=== PATIENT | female | born 1975 | race Caucasian/White ===

== ENCOUNTER 2023-02-15 14:12 | Outpatient (RCR) | payer OTHER, SELFPAY | END 2023-05-02 16:53 | disposition home or self-care (01) | LOC: PT 14:12 | PROVIDERS: PCP Family Medicine; Visit Provider Student in an Organized Health Care Education/Training Program | DX: M92.62 Juvenile osteochondrosis of tarsus, left ankle (principal) | CPT/HCPCS: 20561; 97010; 97014; 97110; 97112; 97140; 97162; 97530 ==

== ENCOUNTER 2023-04-04 14:46 | Outpatient (OUT) | payer OTHER, SELFPAY ==
--- NOTE | 2023-04-04 14:54 | XR_ITS ---
The [address] [address] Patient Name: MARGAUX SHARP MRN: [id number] date: 1975 Sex: F Assigned Patient Location: [facility] Current Patient Location: Accession/Order Number: [id number] Exam Date: 04/04/2023 14:54 Report Date: 04/05/2023 06:37 At the request of: MAGDY SANTILLAN Procedure: XR foot RT min 3V PROCEDURE: XR ankle RT min 3V, XR foot RT min 3V HISTORY: RIGHT ANKLE PAIN , chronic COMPARISON: XR foot bilateral 09/29/2022 FINDINGS: BONES:Unhnh-yrwiwaqo-fhutu degenerative enthesophytes at the Achilles tendon and plantar aponeurosis insertions into calcaneus. Bone hypertrophy the head of the first metatarsal compatible with bunion formation. Mild degenerative changes the first metatarsophalangeal joint. Unremarkable ankle mortise. SOFT TISSUES:No visible soft tissue swelling. EFFUSION:None visible. OTHER: Negative. XR/XR foot RT min 3V IMPRESSION: 1. No acute bone abnormality. 2. Bunion formation. 3. Mild-moderate enthesopathic spurring of the calcaneus. Electronically authenticated by: FERNIE SERRANO Date: 04/05/2023 06:37
--- NOTE | 2023-04-04 14:55 | XR_ITS ---
The [address] [address] Patient Name: MARGAUX SHARP MRN: [id number] date: 1975 Sex: F Assigned Patient Location: [facility] Current Patient Location: Accession/Order Number: [id number] Exam Date: 04/04/2023 14:54 Report Date: 04/05/2023 06:37 At the request of: MAGDY SANTILLAN Procedure: XR ankle RT min 3V PROCEDURE: XR ankle RT min 3V, XR foot RT min 3V HISTORY: RIGHT ANKLE PAIN , chronic COMPARISON: XR foot bilateral 09/29/2022 FINDINGS: BONES:Hjbdc-vmyjebfv-irnhc degenerative enthesophytes at the Achilles tendon and plantar aponeurosis insertions into calcaneus. Bone hypertrophy the head of the first metatarsal compatible with bunion formation. Mild degenerative changes the first metatarsophalangeal joint. Unremarkable ankle mortise. SOFT TISSUES:No visible soft tissue swelling. EFFUSION:None visible. OTHER: Negative. XR/XR ankle RT min 3V IMPRESSION: 1. No acute bone abnormality. 2. Bunion formation. 3. Mild-moderate enthesopathic spurring of the calcaneus. Electronically authenticated by: FERNIE SERRANO Date: 04/05/2023 06:37
== END 2023-04-04 14:47 | disposition home or self-care (01) ==
LOC: RAD 14:46
PROVIDERS: PCP Family Medicine; Visit Provider Podiatrist Foot & Ankle Surgery
DX: M25.571 Pain in right ankle and joints of right foot (principal); M77.31 Calcaneal spur, right foot
CPT/HCPCS: 73610; 73630

== ENCOUNTER 2023-04-30 09:54 | Outpatient (OUT) | payer OTHER, SELFPAY ==
--- NOTE | 2023-04-30 10:40 | P.GSHP_ITS ---
History of Present Illness History of Present Illness Chief complaint: strain of right Achilles tendon Narrative: Patient presents for preadmission testing. The patient reports right heel pain. The patient states his pain has been ongoing for years, worse with 1st steps of the morning, better with meloxicam. The patient states that she had surgery for her left foot in December 2022 and she is doing very well. She denies numbness, tingling, weakness, or any other complaints. Review of Systems ROS Narrative REVIEW OF SYSTEMS: Negative except as stated in HPI, ten or more systems reviewed. Constitutional: No fever , chills, weakness ENT: No sore throat or epistaxis Cardiovascular: No edema, chest pain, palpitations, or activity intolerance Respiratory: No shortness of breath, cough, or wheezing Gastrointestinal: No abdominal pain, constipation, diarrhea, or vomiting Genitourinary: No dysuria or hematuria Neurological: No numbness, tingling, weakness, or headache Psychiatric: No mood changes PFSH PFSH Medical History (Updated 04/30/23 @ 10:47 by Lanette Ramsey NP) Surgical History (Updated 04/30/23 @ 10:16 by Lanette Ramsey NP) Family History (Updated 04/30/23 @ 10:16 by Lanette Ramsey NP) Other Family history of breast cancer Family history of hypertension Family history of prostate cancer Social History (Updated 04/30/23 @ 10:13 by Lanette Ramsey NP) Within the past year, how often did you have a drink containing alcohol: 2-4 times a month Smoking status: Never smoker Non-prescribed substance use: denies use Previous occupational history: [employer] Highest level of school completed/degree received: high school graduate Meds Home Medications and Allergies Home Medications Medication Instructions Recorded Confirmed Type meloxicam 15 mg tablet 15 mg PO QDAY 04/30/23 04/30/23 History Allergies Allergy/AdvReac Type Severity Reaction Status Date / Time No Known Drug Allergies Allergy Verified 04/30/23 10:11 Exam Narrative Exam Narrative: Constitutional: Awake, alert, Very pleasant, comfortable, well-appearing, nontoxic, interactive, vital signs as charted Head: Normocephalic, atraumatic Neck: Supple, normal appearance, normal range of motion, no meningeal signs, no lymphadenopathy Respiratory: No respiratory distress, breath sounds clear Cardiovascular: Regular rate and rhythm, strong and regular heart tones Abdomen: Nontender, normal bowel sounds, soft, no CVA tenderness Musculoskeletal: Tenderness overlying the plantar aspect of the right calcaneus, heel pain with ankle flexion, good capillary refill, sensation intact Skin: No rashes or induration, no lesions, only visible skin inspected Neuro: No neurological deficits, normal sensation Psychiatric: Oriented ?3, normal affect Assessment and Plan Assessment and Plan (1) Achilles tendonitis: (2) Strain of Achilles tendon: (3) Gastrocnemius equinus: (4) Heel pain: Plan Right detachment?reattachment of Achilles tendon with repair/debridement as needed and excision of calcaneal spur, possible tendon transfer scheduled with Dr. Valladares 05/14/2023.
== END 2023-04-30 09:55 | disposition home or self-care (01) ==
LOC: PST 09:54
PROVIDERS: PCP Family Medicine; Visit Provider Podiatrist Foot & Ankle Surgery
DX: Z01.818 Encounter for other preprocedural examination (principal); S86.011S Strain of right Achilles tendon, sequela; M76.61 Achilles tendinitis, right leg
CPT/HCPCS: G0463

== ENCOUNTER 2023-05-14 07:59 | Day surgery (SDC) | payer OTHER, SELFPAY ==
[2023-04-30 10:32] VITALS: BP 122/85; PULSE 75; RESP 18; TEMP 36.4; O2SAT 98; BMI 47.4
[2023-05-14] VITALS (10 sets, daily range): BP systolic 128–164; BP diastolic 76–90; PULSE 65–92; RESP 13–21; TEMP 36.1–36.2; O2SAT 76–100; BMI 46.3
[2023-05-14 08:20] LABS: Glucometer 95 mg/dL (74-106)
[2023-05-14] MEDS: LACTATED RINGER'S SOLUTION 1,000 ML 50 ML IV (08:22)
[2023-05-14] MEDS: CEFAZOLIN SODIUM/DEXTROSE,ISO 2 GM/50 ML PIGGYBACK IV (10:09)
--- NOTE | 2023-05-14 10:15 | PC.NURSE ---
time out performed as documented. pt connected to vitals machine and 2L O2 via nasal cannula applied per policy. pt then positioned per anethesia and popliteal block began at 0956. Block was completed at 1004, pt tolerated well with no complaints. pts vitals monioted throughout procedure and will be monitored until pt is taken back to the OR. pt remains on 2L O2,pt positioned to their comfort. siderails are up,bed in lowest position with call light within reach.
--- NOTE | 2023-05-14 12:15 | XR_ITS ---
The [address] [address] Patient Name: MARGAUX SHARP MRN: [id number] date: 1975 Sex: F Assigned Patient Location: [facility] Current Patient Location: Accession/Order Number: [id number] Exam Date: 05/14/2023 12:55 Report Date: 05/15/2023 09:22 At the request of: SEAN BASSETT Procedure: XR ankle RT min 3V EXAM: XR ankle RT min 3V HISTORY: . postop xr pacu . COMPARISON: None. TECHNIQUE: 3 views. FINDINGS: There is a splint overlying the posterior and lateral aspect of the ankle. Medial lateral malleolar appear intact. Ankle mortise appears intact. There is a small spur off the posterior aspect of the calcaneus. XR/XR ankle RT min 3V IMPRESSION: 1. Splint in place 2. Post Achilles reattachment. 3. Small spur off the posterior inferior aspect of the calcaneus. Electronically authenticated by: SARA LYONS Date: 05/15/2023 09:22
--- NOTE | 2023-05-14 12:25 | PM.ORONB ---
Brief Operative Note Date of procedure: 05/14/23 Pre-op diagnosis: right chronic Achilles tendon tear, calcaneal spur, Achilles tendinitis Post-op diagnosis: same as pre-op Procedure: PROCEDURES PERFORMED: right flexor hallucis longus tendon transfer with Achilles tendon repair an excision of calcaneal spur; application of short leg splint INTRAOPERATIVE FINDINGS: significant chronic tears of the Achilles tendon with intratendinous degeneration. Large calcaneal enthesophyte with associated bursitis. Bone quality was within normal limits. PROCEDURE IN DETAIL: Patient was identified in pre op and consent was reviewed. Correct side and site were identified and marked. Pre-op antibiotics were started. Patient was brought to OR suite and general anesthesia was administered. Tourniquet applied. then the patient was flipped onto the OR table in a well-padded prone position. Operative extremity was prepped and draped in usual sterile fashion. Formal time-out was performed and the foot/ankle were exsanguinated and tourniquet inflated. A midline longitudinal incision over the Achilles tendon was performed and a combination of sharp and blunt dissection with all bleeders being coagulated allowed access to the Achilles tendon. The non-insertional and insertional areas of the Achilles tendon were completely exposed. There was significant thickening and nonviable tissue noted in Achilles tendon. The Achilles tendon was then detached from its insertion and a retrocalcaneal spur was noted with retrocalcaneal bursitis with surrounding inflammatory tissue was noted and excised. Nonviable tendon was excised then all chronic tears and scar tissue removed. 50% Of the Achilles required excision. Attention was then drawn to the retrocalcaneal spur and an osteotome was used to remove all excess bone and inflammatory tissue. A rongeur and rasp were then used to contour the retrocalcaneal to an anatomic appearance. Outer cortical bone was invaded and healthy bleeding was noted which will allow good tendon to bone healing. The area was flushed with copious amounts of sterile saline and a wet lap was placed over the Achilles tendon. The deep crural fascia was incised exposing the flexor hallucis longus muscle and tendon. Then while my human resources executive assistant placed the foot and great toe in maximum plantar flexion and the tendon was isolated and then brought as far proximal as possible. I then transected the flexor hallucis longus tendon as distally as possible. I then used suture to whipstitch the flexor hallucis longus tendon and needles were cut from the sutures. A wet lap was placed over the tendon with the Achilles. Attention was then redrawn back to the retro-calcaneus and a placed in the superior aspect of the calcaneus and driven through the plantar surface. A stab incision on the plantar foot allowed passage of the guide pin. The FHL tendon was sized to determine appropriate size of the anchor. A cannulated drill was used over the guide pin and drilled to the appropriate depth. The sutures were passed through the guide pin and the pin pulled through the plantar skin. The tendon passed through the drill hole and tension was held on the sutures while holding the foot in slight plantarflexion. A 6 mm tenodesis anchor was placed accordingly to secure the FHL tendon to the calcaneus. Stability was tested and was stable Reattachment: Two drill holes were placed into the posterior calcaneus from posterior to anterior and were placed approximately 2 cm apart in the superior aspect of the posterior calcaneus. A 3.[address] in each of the drill holes. Four of the sutures (two from each anchor) were placed through the Achilles at the proximal insertion. Then two additional drill holes were placed on the inferior aspect of the posterior calcaneus. Then 1 suture from each of the anchors was placed through a 4.5 mm knotless screw. The sutures were tensioned and the anchor placed in the medial drill holes while holding the foot plantarflexed. The sutures were then tied and cut. This step was repeated for the inferior-lateral drill hole. the sutures were then tied and cut. The sutures were tied/cut and the stability of the insertion was tested and were stable. The foot was in 10 degrees of equinus. The surgical site was flushed thoroughly. Incision was then closed in layers. Tourniquet was deflated and a prompt hyperemic response is noted. A dry sterile dressing consisting of Xeroform on the incisions followed by 4 x 4 gauze, ABDs, and Kerlix were applied. Multiple layers of cast padding were then applied to ensure all bony prominences were well-padded. A plaster posterior splint was then applied which was held in place by Inocente wraps. Capillary refill time to all digits was evaluated and had appropriate response. POSTOPERATIVE PLAN: Discharge home under family's care Post op instructions provided verbally and written prescription(s) were placed in chart NWB operative foot/ankle x3 wks or until incision has healed Follow-up in 1 week Implants: Medline anchors Anesthesia: regional and General-ET Surgeon: Pancho Valladares Pull Over Machine Operator: Florencio Saxena Estimated blood loss (mL): 10 Pathology: other (Achilles tendon and calcaneal spur) Condition: stable Disposition: PACU Preoperative Details Reason for procedure: patient is a 47-year-old female presented long-standing progressive pain and dysfunction with bilateral Achilles tendons with the right being worse than the left. On examination she had thickening of the Achilles tendon on the right with large palpable enthesophyte. MRI demonstrated significant intratendinous degeneration with chronic tearing. I discussed the risks and benefits of surgical versus continued nonsurgical treatment. Given that she had failed nonsurgical treatment she wished to proceed with surgical repair. All questions were answered to her satisfaction and consent was obtained
== END 2023-05-14 13:38 | disposition home or self-care (01) ==
PROVIDERS: PCP Family Medicine; Visit Provider Podiatrist Foot & Ankle Surgery
PROC: (CPT 27650; principal; 2023-05-14 09:10)
DX: M76.61 Achilles tendinitis, right leg (principal); S86.011S Strain of right Achilles tendon, sequela; Z90.710 Acquired absence of both cervix and uterus; M77.31 Calcaneal spur, right foot
CPT/HCPCS: 27650; 27691; 28118; 36415; 64445; 73610; 76942; 82948; 88304; 88305; 88311; C1713; J2704

== ENCOUNTER 2023-07-13 15:05 | Outpatient (RCR) | payer OTHER, SELFPAY | END 2023-08-22 11:35 | disposition home or self-care (01) | LOC: PT 15:05 | PROVIDERS: PCP Family Medicine; Visit Provider Podiatrist Foot & Ankle Surgery | DX: M76.61 Achilles tendinitis, right leg (principal) | CPT/HCPCS: 97110; 97112; 97140; 97162 ==

== ENCOUNTER 2024-08-09 08:46 | Outpatient (OUT) | payer OTHER, SELFPAY ==
[2024-08-09 09:09] LABS: Basophils Percent Auto 0.7 % (0.2-2.0); Hematocrit 43.6 % (36.0-48.0); Immature Granulocytes Abs Auto 0.02 10^3/uL (0.00-0.03); Immature Granulocytes Pct Auto 0.4 % (0.0-0.5); Lymphocytes Absolute Auto 1.7 10^3/uL (1.2-3.8); Lymphocytes Percent Auto 29.6 % (20.5-60.0); Mean Corpuscular HGB Conc 32.1 g/dL (29.9-35.2); Mean Corpuscular Hemoglobin 28.3 pg (26.7-34.0); Mean Corpuscular Volume 88.1 fL (81.0-99.0); Mean Platelet Volume 9.8 fL (9.5-13.5); Monocytes Absolute Auto 0.4 10^3/uL (0.3-0.8); Monocytes Percent Auto 6.4 % (1.7-12.0); Neutrophils Absolute Auto 3.6 10^3/uL (1.4-6.5); Neutrophils Percent Auto 62.9 % (43.0-75.0); Platelet Count 253 10^3/uL (150-450); Red Blood Count 4.95 10^6/uL (4.20-5.40); Red Cell Distribution Width 13.3 % (11.0-15.0); White Blood Count 5.6 10^3/uL (4.0-11.0)
[2024-08-09 09:40] LABS: Alanine Aminotransferase 22 U/L (14-59); Albumin Globulin Ratio 0.9; Albumin Level 3.5 g/dL (3.4-5.0); Alkaline Phosphatase 99 U/L (46-116); Anion Gap 12.5; Aspartate Amino Transferase 22 U/L (15-37); BUN Creatinine Ratio 15.3; Bilirubin Total 0.4 mg/dL (0.2-1.0); Calcium 8.9 mg/dL (8.5-10.1); Carbon Dioxide 27.6 mmol/L (21.0-32.0); Chloride 105 mmol/L (98-107); Chol HDL Ratio 3.8; Cholesterol 190 mg/dL (<=200); Estimated GFR (African America >60 (>=60 mL/min/1.73m^2); Estimated GFR (Non-African Ame >60 (>=60 mL/min/1.73m^2); Free T3 2.65 pg/mL (2.18-3.98); Globulin 3.8 g/dL; Glucose 95 mg/dL (74-106); HDL Cholesterol 50 mg/dL (40-60); LDL Cholesterol Calculated 111.6 mg/dL; Potassium 4.1 mmol/L (3.5-5.1); Sodium 141 mmol/L (136-145); Thyroid Stimulating Hormone 2.766 uIU/mL (0.358-3.740); Total Protein 7.3 g/dL (6.4-8.2); Triglycerides 142 mg/dL (<=150); VLDL CHOLESTEROL 28.4 mg/dL
[2024-08-09 10:06] LABS: Estimated Average Glucose 108 mg/dL; Glycohemoglobin A1C 5.4 % (4.5-6.2)
[2024-08-09 13:26] LABS: Internal Control Within Normal Limits; Occult Blood Negative
[2024-08-10 11:08] LABS: Insulin 15.6 uIU/mL (2.6-24.9)
== END 2024-08-09 08:47 | disposition home or self-care (01) ==
LOC: LAB 08:50
PROVIDERS: PCP Family Medicine; Visit Provider Family Medicine
DX: Z00.00 Encounter for general adult medical examination without abnormal findings (principal); E03.9 Hypothyroidism, unspecified
CPT/HCPCS: 36415; 80053; 80061; 83036; 83525; 84436; 84443; 84481; 85025; G0328